=== PATIENT | male | born 1950 | race Caucasian/White ===

== ENCOUNTER 2018-03-12 07:12 | Day surgery (SDC) | payer MEDICARE ==
[2018-03-11 11:17] VITALS: BMI 47.5
[2018-03-12 08:05] LABS: #Eosinphils 0.1 thou/uL (0.0-0.7); #Lymphocytes 1.9 thou/uL (1.20-3.40); #Monocytes 0.7 thou/uL (0.11-0.59); #Neutrophils 3.7 thou/uL (1.40-6.50); %Basophils 0.6 % (0.0-1.0); %Lymphocytes 29.3 % (21.0-51.0); %Monocytes 10.4 % (0.0-10.0); %Neutrophils 57.7 % (42.0-75.0); Hemoglobin 13.2 g/dL (14.0-18.0); Mean Corpuscular Hemoglobin 29.9 pg (27.0-31.0); Mean Corpuscular Volume 90.6 fL (78.0-98.0); Mean Platelet Volume 6.6 fL (7.4-10.4); Platelet Count 297 thou/uL (130-400); Red Blood Cell (RBC) Count 4.42 mill/uL (4.70-6.10); White Blood Cell (WBC) Count 6.4 thou/uL (4.8-10.8)
[2018-03-12 08:10] LABS: PTT 26.7 SEC (22.9-36.1); Prothrombin Time 13.1 SEC (12.0-14.7)
[2018-03-12] MEDS ORDERED: cefTRIAXone\\ROCEPHIN 1 GM VIAL ONE (08:12)
[2018-03-12] MEDS ORDERED: Sodium Chloride 0.9% 100 ML ONE ×2 (08:12→09:01)
[2018-03-12 08:24] LABS: Anion Gap 10 mmol/L (10-20); BUN (Urea Nitrogen) 22 mg/dL (8.4-25.7); Calc. Creatinine Clearance 155 mL/min (70-130); Calcium 9.4 mg/dL (7.8-10.44); Carbon Dioxide 24 mmol/L (23-31); Chloride 108 mmol/L (98-107); Estimated GFR-MDRD 71; Glucose 115 mg/dL (80-115); Potassium 4.1 mmol/L (3.5-5.1); Sodium 138 mmol/L (136-145)
--- NOTE | 2018-03-12 08:25 | RAD ---
ONE VIEW ABDOMEN: HISTORY: Left renal calculi. COMPARISON: None. FINDINGS: Nonspecific bowel gas pattern. No suspicious densities of the abdomen and pelvis. No evidence of ca lcifications projecting over the left or right renal silhouette. IMPRESSION: Nonspecific bowel gas pattern. POS: CASSANDRA
[2018-03-12] MEDS ORDERED: Fentanyl 100 MCG/2 ML VIAL ONE ×5 (08:34→13:13)
[2018-03-12] MEDS ORDERED: cefTRIAXone\\ROCEPHIN 2 GM in Sodium Chloride 0.9% 100 ML IVPB SCH (08:45)
[2018-03-12] MEDS ORDERED: Iothalamate Meglumine 60% 50 ML VIAL FS ONE (10:07)
[2018-03-12] MEDS ORDERED: Furosemide 20 MG/2 ML VIAL ONE (10:32)
[2018-03-12] MEDS ORDERED: Promethazine HCl 25 MG/ML VIAL ONE (11:22)
--- NOTE | 2018-03-12 12:37 | RAD ---
RETROGRADE URETEROGRAM INTRAOPERATIVE FLUOROSCOPY: HISTORY: Urinary tract calcifications. FINDINGS: Intraoperative fluoroscopy was provided for retrograde study as performed by Dr. Valdez. Spot fluoro scopic images show contrast opacification of nondilated ureters and renal collecting systems. No ole ling defects are reliably demonstrated. POS: DUSTY
[2018-03-12] MEDS ORDERED: Acetaminophen/Codeine 30-300mg Tablet ONE (14:04)
[2018-03-12] MEDS ORDERED: Lidocaine 1% PF 5 ML VIAL ONE (14:32)
[2018-03-12] MEDS ORDERED: Glycopyrrolate 0.2 MG/ML 5 ML SYRINGE ONE (14:32)
[2018-03-12] MEDS ORDERED: Ondansetron HCl/PF 4 MG/2 ML Vial ONE (14:32)
[2018-03-12] MEDS ORDERED: PROPOFOL 200 MG/20 ML VIAL ONE (14:32)
--- NOTE | 2018-03-12 22:15 | OP ---
DATE OF PROCEDURE: 03/12/2018 PREOPERATIVE DIAGNOSIS: Left distal ureteral stone. POSTOPERATIVE DIAGNOSIS: No stone seen. PROCEDURES PERFORMED: Cystoscopy, left retrograde, rigid ureteroscopy, left stent placement and righ t retrograde. SURGEON: Dr. Mani Valdez. ANESTHETIC: General. ESTIMATED BLOOD LOSS: Minimal. DRAINS PLACED: A 4.8 x 24 cm left double-J stent with a string attached coming out of the urethral m eatus. INDICATIONS FOR SURGERY: This is a 68-year-old obese male who has been bothered with off and on symp toms from the left distal ureteral stone that was found on CAT scan at [facility] on work up for hematuria. Most recently, he has been having problems with frequency, urgency and irritative symptoms. He also has a history of transitional cell cancer. He had office cystoscopy done not that long ago that showed no evidence of recurrence in the bladder. He has not had a urinary tract infec tion. He is coming in now for cystoscopy and retrograde and possible ureteroscopy, laser lithotripsy , and stone retrieval. His preop KUB did not show a stone, but was not very big stone in a very larg e individual and where he has had symptoms off and on for probably 2-3 weeks now, would like to proce ed on with the procedure. DESCRIPTION OF PROCEDURE: After obtaining written and verbal consent after receiving IV antibiotics, he was taken to the operating suite. He was placed in the supine position on the treatment table. PlexiPulses were placed on his lower extremities and turned on. He was given a general anesthetic an d oral obturator intubation. He was placed in the dorsal lithotomy position. He was sterilely prepp ed and draped. Cystoscopy was performed with a 22-[place] sheath. This was well lubricated and passe d under direct vision through the male urethra into the urinary bladder. The bladder was filled and emptied a number of times. This is examined with both a 30 and the 70 degree lens. At this point, a 0.038 guidewire was advanced into the left ureteral orifice. There was a little bit of obstruction before popped through and then a 5-[place] Pollack catheter was advanced over it about a 2 cm up the u reter removing the open-ended catheter, injecting contrast in a retrograde manner. There was some mi ld dilatation of the left collecting system and when open-ended catheter was removed, it did appear t o hang up at the lower third of the ureter by the ureterovesical junction site of stone was. He coul d not see a filling defect. For this reason, the guidewire was placed up into the renal pelvis and lien melchor in a small caliber graduated rigid ureteroscope and passed this under direct vision through th e male urethra into the bladder and up the left ureter went up as far as the vessels, did not see any stones, did also not see any tumors. We then went ahead and removed the instrument under direct vis ion. We removed the guidewire. We injected contrast up this side and watched to see how it drained, but did not drain to completion. He was given some Lasix 20 mg and his fluids were opened up. We c ontinued to watch this. I also did a quick retrograde on the other side, which was completely normal . The ureter is not dilated at all and that side drained very quickly. Because the left side was sl ow to drain and had a history of stone in it, we went ahead and passed a guidewire back up that side and then passed a stent over the guidewire, pushing up into place with aid of a pusher so its proxima l end coiled in the renal pelvis and its distal end coiled in the wall bladder when the wire was gisella nighat. The bladder was then drained. The instruments were removed. The guidewire was left exiting th e urethral meatus. The patient was taken out of dorsal lithotomy position, awakened, extubated, and taken by stretcher to the recovery room.
== END 2018-03-12 14:59 | disposition home or self-care (01) ==
LOC: SDC 07:12
PROVIDERS: ATTEND Urology
PROC: BT1D1ZZ Fluoroscopy of Right Kidney, Ureter and Bladder using Low Osmolar Contrast (ICD-10-PCS; principal; 2018-03-12)
PROC: 0T778DZ Dilation of Left Ureter with Intraluminal Device, Via Natural or Artificial Opening Endoscopic (ICD-10-PCS; 2018-03-12)
DX: N20.1 Calculus of ureter (principal); I10 Essential (primary) hypertension; E11.9 Type 2 diabetes mellitus without complications; J44.9 Chronic obstructive pulmonary disease, unspecified; Z85.51 Personal history of malignant neoplasm of bladder; Z79.84 Long term (current) use of oral hypoglycemic drugs; Z79.899 Other long term (current) drug therapy; Z88.0 Allergy status to penicillin
CPT/HCPCS: 52005; 52332; 74018; 74420; 80048; 85025; 85610; 85730; 96374 ×2; C1758; 36415; J0696; J1940; J2001; J2405; J2550; J2704; J3010; J7050; Q9961

== ENCOUNTER 2020-12-17 05:58 | Day surgery (SDC) | payer MEDICARE ==
[2020-12-14 11:36] VITALS: BMI 39.4
[2020-12-17 06:35] LABS: #Eosinphils 0.1 thou/uL (0.0-0.7); #Lymphocytes 2.8 thou/uL (1.20-3.40); #Monocytes 0.5 thou/uL (0.11-0.59); #Neutrophils 3.1 thou/uL (1.40-6.50); %Basophils 0.7 % (0.0-1.0); %Eosinophils 1.9 % (0.0-10.0); %Lymphocytes 42.6 % (21.0-51.0); %Monocytes 7.1 % (0.0-10.0); %Neutrophils 47.7 % (42.0-75.0); Hemoglobin 12.7 g/dL (14.0-18.0); Mean Corpuscular HGB CONC 32.1 g/dL (32.0-36.0); Mean Corpuscular Hemoglobin 28.7 pg (27.0-31.0); Mean Corpuscular Volume 89.4 fL (78.0-98.0); Mean Platelet Volume 6.8 fL (7.4-10.4); Platelet Count 380 thou/uL (130-400); RBC Distribution Width 12.7 % (11.5-14.5); Red Blood Cell (RBC) Count 4.42 mill/uL (4.70-6.10); White Blood Cell (WBC) Count 6.5 thou/uL (4.8-10.8)
[2020-12-17] MEDS ORDERED: cefTRIAXone\\ROCEPHIN 2 GM VIAL ONE (06:47)
[2020-12-17] MEDS ORDERED: Sodium Chloride 0.9% 100 ML ONE (06:47)
[2020-12-17 06:55] LABS: Anion Gap 18 mmol/L (10-20); BUN (Urea Nitrogen) 13 mg/dL (8.4-25.7); Calc. Creatinine Clearance 135 mL/min (70-130); Calcium 9.5 mg/dL (7.8-10.44); Carbon Dioxide 20 mmol/L (23-31); Chloride 103 mmol/L (98-107); Glucose 118 mg/dL (80-115); Potassium 4.2 mmol/L (3.5-5.1); Sodium 137 mmol/L (136-145)
[2020-12-17] MEDS ORDERED: Fentanyl 100 MCG/2 ML VIAL ONE ×4 (07:00→08:58)
[2020-12-17] MEDS ORDERED: Lidocaine 1% PF 5 ML VIAL ONE (07:40)
[2020-12-17] MEDS ORDERED: Rocuronium Bromide 10 MG/ML (10ML VIAL) ONE (07:40)
[2020-12-17] MEDS ORDERED: Glycopyrrolate 0.2 MG/ML 5 ML SYRINGE ONE (07:40)
[2020-12-17] MEDS ORDERED: PROPOFOL 200 MG/20 ML VIAL ONE (07:40)
[2020-12-17] MEDS ORDERED: Succinylcholine 200 MG/10 ml SYRINGE FS ONE (07:40)
[2020-12-17] MEDS ORDERED: Ondansetron PF 4 MG/2 ML Vial ONE (07:40)
[2020-12-17] MEDS ORDERED: Dexamethasone 20 MG/5 ML VIAL ONE (07:40)
[2020-12-17] MEDS ORDERED: Iothalamate Meglumine 60% 30 ML VIAL FS ONE (07:54)
[2020-12-17] MEDS ORDERED: Promethazine HCl 25 MG/ML VIAL ONE (08:45)
[2020-12-17] MEDS ORDERED: HYDROcodone/Acetaminophen 5/325 mg Tablet ONE (10:37)
== END 2020-12-17 11:10 | disposition home or self-care (01) ==
LOC: SDC 05:58
PROVIDERS: ATTEND Urology
PROC: 0TC68ZZ Extirpation of Matter from Right Ureter, Via Natural or Artificial Opening Endoscopic (ICD-10-PCS; principal; 2020-12-17)
PROC: 0TP98DZ Removal of Intraluminal Device from Ureter, Via Natural or Artificial Opening Endoscopic (ICD-10-PCS; 2020-12-17)
PROC: 0T768DZ Dilation of Right Ureter with Intraluminal Device, Via Natural or Artificial Opening Endoscopic (ICD-10-PCS; 2020-12-17)
DX: N20.1 Calculus of ureter (principal); N40.1 Benign prostatic hyperplasia with lower urinary tract symptoms; E11.9 Type 2 diabetes mellitus without complications; I10 Essential (primary) hypertension; Z79.84 Long term (current) use of oral hypoglycemic drugs; Z79.899 Other long term (current) drug therapy; Z88.0 Allergy status to penicillin
CPT/HCPCS: 36415; 74420; 80048; 82365; 85025; 88300; 93005; 93010; C2617; J0696; J1100; J2405; J2550; J2704; J3010; J3490

== ENCOUNTER 2023-01-05 10:38 | Day surgery (SDC) | payer MEDICARE ==
[2023-01-02 10:59] VITALS: BMI 43.0
[2023-01-05] MEDS ORDERED: Ketamine 50 MG/ML (10ML VIAL) ONE (13:14)
[2023-01-05] MEDS ORDERED: Midazolam HCl 2 mg/2 ml Vial ONE (13:14)
[2023-01-05] MEDS ORDERED: fentaNYL 50 mcg/mL 1 mL Vial ONE (13:14)
== END 2023-01-05 14:45 | disposition home or self-care (01) ==
LOC: MRI 10:38
PROVIDERS: ATTEND Orthopaedic Surgery
DX: M54.16 Radiculopathy, lumbar region (principal); M54.50 Low back pain, unspecified; I48.91 Unspecified atrial fibrillation; G47.33 Obstructive sleep apnea (adult) (pediatric); E11.9 Type 2 diabetes mellitus without complications; I10 Essential (primary) hypertension; E78.00 Pure hypercholesterolemia, unspecified; Z87.891 Personal history of nicotine dependence; Z79.84 Long term (current) use of oral hypoglycemic drugs; Z79.899 Other long term (current) drug therapy; Z90.49 Acquired absence of other specified parts of digestive tract; Z88.0 Allergy status to penicillin
CPT/HCPCS: 72148; J3010; J2250

== ENCOUNTER 2023-06-15 10:09 | Day surgery (SDC) | payer MEDICARE ==
[2023-06-12 11:06] VITALS: BMI 41.1
[2023-06-15] MEDS ORDERED: fentaNYL 50 mcg/mL 1 mL Vial ONE (11:21)
[2023-06-15] MEDS ORDERED: Ketamine In 0.9 % NaCl 50 MG/5 ML SYRINGE ONE (11:22)
[2023-06-15] MEDS ORDERED: Midazolam HCl 2 mg/2 ml Vial ONE (11:22)
[2023-06-15] MEDS ORDERED: Glycopyrrolate 0.2 MG/ML 5 ML SYRINGE ONE (11:45)
== END 2023-06-15 13:10 | disposition home or self-care (01) ==
LOC: MRI 10:09
PROVIDERS: ATTEND Orthopaedic Surgery
DX: M51.16 Intervertebral disc disorders with radiculopathy, lumbar region (principal); I10 Essential (primary) hypertension; E78.5 Hyperlipidemia, unspecified; I48.91 Unspecified atrial fibrillation; J44.9 Chronic obstructive pulmonary disease, unspecified; J45.909 Unspecified asthma, uncomplicated; G47.33 Obstructive sleep apnea (adult) (pediatric); F17.210 Nicotine dependence, cigarettes, uncomplicated; E11.9 Type 2 diabetes mellitus without complications; I71.40 Abdominal aortic aneurysm, without rupture, unspecified; Z79.84 Long term (current) use of oral hypoglycemic drugs; Z79.899 Other long term (current) drug therapy; Z88.0 Allergy status to penicillin
CPT/HCPCS: 72148; J3010; J2250; J3490

== ENCOUNTER 2024-02-29 12:22 | Outpatient (CLI) | payer MEDICARE ==
[2024-02-26 09:14] VITALS: BMI 40.0
[2024-02-29] MEDS ORDERED: Midazolam HCl 2 mg/2 ml Vial ONE (13:43)
[2024-02-29] MEDS ORDERED: fentaNYL PF 100 MCG/2 ML SYRINGE ONE (13:43)
[2024-02-29] MEDS ORDERED: PROPOFOL 200 MG/20 ML VIAL ONE (14:00)
== END 2024-02-29 15:45 | disposition home or self-care (01) ==
LOC: MRI 12:22
PROVIDERS: ATTEND Physical Medicine & Rehabilitation
DX: M54.16 Radiculopathy, lumbar region (principal); M48.061 Spinal stenosis, lumbar region without neurogenic claudication; M48.07 Spinal stenosis, lumbosacral region
CPT/HCPCS: 72148; J2250; J2704